=== PATIENT | male | born 1940 | race Two or more races ===

== ENCOUNTER 2019-02-27 12:56 | Inpatient (IN) | payer MEDICARE, OTHER ==
[~2019-02-27] VITALS: Ht 165.1 cm; Wt 72.6 kg
[2019-02-27] MEDS ORDERED: ACETAMINOPHEN 325 MG TABLET PO PRN (14:00)
[2019-02-27] MEDS ORDERED: clonazePAM 0.5 MG TABLET PO PRN (14:00)
[2019-02-27] MEDS ORDERED: MAG HYDROX/AL HYDROX/SIMETH 30 ML UDC PO PRN (14:00)
[2019-02-27] MEDS ORDERED: MAGNESIUM HYDROXIDE 30 ML UDC PO PRN (14:00)
[2019-02-27] MEDS ORDERED: TEMAZEPAM 7.5 MG CAPSULE PO PRN (14:00)
--- NOTE | 2019-02-27 15:14 | NUR ---
SECURITY SYSTEM INSTALLER NOTE :ADMITTED A 78 Y/O MALE ON 5150 HOLD FOR DTO ,PER 5150 HOLD PATIENT WENT TO AN APARTMENT WITH AN AXE LOOKING FOR A FAMILY MEMBER ,THE PERSON WHO CALLED A POLICE SAID PATIENT HELD THE AXE ABOVE HIS HEAD .ON 1:1 ASSESSMENT PATIENT ALERT ,VERBALLY RESPONSIVE ,PARANOID AND SUSPICIOUS ,PREOCCUPIED WITH HIS OWN THOUGHTS ,EASILY IRRITABLE AND ANXIOUS ,MOOD DEPRESSED ,PATIENT STATED "PEOPLE ARE DANGEROUS TO YOUR HEALTH ,I DON'T HAVE ANY MEDICAL PROBLEM AND DON'T TAKE ANY MEDICATIONS ".AMBULATORY AND SELF CARE .PATIENT'S RIGHT HAND BOOK GIVEN AND EXPLAINED TO PATIENT ABLE TO VERBALIZE UNDERSTANDING ,START PATIENT ON Q15 MINUTES SAFETY CHECK .
[2019-02-27 16:00] VITALS: BP 117/64
[2019-02-27] MEDS: QUETIAPINE FUMARATE 25 MG TABLET PO SCH (17:00)
[2019-02-27 20:14] VITALS: BP 100/57
[2019-02-27 22:14] VITALS: BP 105/62
[2019-02-28 07:29] LABS: ALANINE AMINOTRANSFERASE 18 U/L (12-78); ALKALINE PHOSPHATASE 71 U/L (46-116); ASPARTATE AMINOTRANSFERASE 14 U/L (15-37); BILIRUBIN,TOTAL 0.4 mg/dL (0.2-1.0); CALCIUM, SERUM 8.8 mg/dL (8.5-10.1); CARBON DIOXIDE 28 mmol/L (21-32); CHLORIDE 106 mmol/L (98-107); CREATININE 0.9 mg/dL (0.6-1.3); GLUCOSE 97 mg/dL (74-106); POTASSIUM 4.1 mmol/L (3.5-5.1); SODIUM SERUM 144 mmol/L (136-145); TOTAL PROTEIN, SERUM 7.2 g/dL (6.4-8.2); UREA NITROGEN, BLOOD 17 mg/dL (7-18)
[2019-02-28 07:53] LABS: CHOLESTEROL 164 mg/dL (<200); HDL CHOLESTEROL 25 mg/dL (40-60); LDL 134 mg/dL (0-99); TRIGLYCERIDES 88 mg/dL (30-150)
[2019-02-28 08:00] VITALS: BP 124/78
[2019-02-28] MEDS: QUETIAPINE FUMARATE 25 MG TABLET PO SCH ×2 (08:16→16:17)
--- NOTE | 2019-02-28 11:02 | NUR ---
Initial Discharge Plan: Pt currently resides at his home located at [address] [place] [address], [place] [address]; ([phone]). Per pt, he would like to return to his home. JANIE will work with the MD and the pt regarding appropriate discharge planning. SW will form a safe and proper discharge plan.
[2019-02-28 16:00] VITALS: BP 143/74
--- NOTE | 2019-02-28 16:12 | NUR ---
Pt refused to participate in supportive counseling with the SW today and stated that he just wanted to be discharged home.
[2019-02-28] MEDS: BLOOD SUGAR DIAGNOSTIC 1 EACH STRIP IN SCH (17:15)
[2019-02-28 19:59] VITALS: BP 103/66
[2019-02-28 20:12] LABS: APPEARANCE,URINE CLEAR (CLEAR); BILIRUBIN,URINE NEGATIVE (NEGATIVE); BLOOD, URINE NEGATIVE Ery/uL (NEGATIVE); COLOR,URINE YELLOW (YELLOW); KETONES,URINE NEGATIVE (NEGATIVE); LEUKOCYTE ESTERASE ,URINE NEGATIVE (NEGATIVE); NITRITE, URINE NEGATIVE (NEGATIVE); PROTEIN,URINE NEGATIVE (NEGATIVE); UGLUCOSE NEGATIVE (NEGATIVE); UROBILINOGEN,URINE 0.2 EU/dL (0.2)
[2019-03-01 07:21] LABS: BASOPHILS % (AUTO) 0.6 % (0.0-2.0); EOSINOPHILS % (AUTO) 2.8 % (0.0-6.0); HEMATOCRIT 37 % (39-51); LYMPHOCYTES # (AUTO) 2.2 /CMM (0.8-4.8); MEAN CORPUSCULAR HGB CONC 32 g/dl (31.0-36.0); MEAN CORPUSCULAR VOLUME 78 fL (80-96); MONOCYTES # (AUTO) 0.8 /CMM (0.1-1.30); MONOCYTES % (AUTO) 11.7 % (2.0-12.0); NEUTROPHILS # (AUTO) 3.6 /CMM (1.8-8.9); NEUTROPHILS % (AUTO) 52.9 % (43.0-81.0); PLATELET COUNT (AUTO) 187 /CMM (150-450); RED BLOOD CELL COUNT(AUTO) 4.79 MIL/uL (4.5-6.0); WHITE BLOOD COUNT (AUTO) 6.8 K/uL (4.3-11.0)
[2019-03-01 07:44] LABS: CALCIUM, SERUM 8.6 mg/dL (8.5-10.1); CARBON DIOXIDE 26 mmol/L (21-32); CHLORIDE 106 mmol/L (98-107); CREATININE 0.9 mg/dL (0.6-1.3); GLUCOSE 99 mg/dL (74-106); MAGNESIUM 2.2 mg/dL (1.8-2.4); PHOSPHORUS 3.1 mg/dL (2.5-4.9); POTASSIUM 4.1 mmol/L (3.5-5.1); SODIUM SERUM 143 mmol/L (136-145); UREA NITROGEN, BLOOD 17 mg/dL (7-18)
[2019-03-01 08:00] VITALS: BP 127/69
[2019-03-01] MEDS: QUETIAPINE FUMARATE 25 MG TABLET PO SCH ×2 (08:18→16:45)
[2019-03-01] MEDS: BLOOD SUGAR DIAGNOSTIC 1 EACH STRIP IN SCH (08:43)
[2019-03-01 16:00] VITALS: BP 129/77
--- NOTE | 2019-03-01 16:00 | NUR ---
Group Note: Pt refused to participate in group therapy and stated, "I do not need to be in therapy with these people."
[2019-03-01 20:00] VITALS: BP 100/60
[2019-03-02 08:00] VITALS: BP 117/63
[2019-03-02] MEDS ORDERED: QUETIAPINE FUMARATE 25 MG TABLET PO SCH ×2 (09:00→22:00)
--- NOTE | 2019-03-02 10:00 | NUR ---
RN-CO: Probable cause hearing was held and the collections officer decided, there is not probable cause to believe that the patient as a result of a mental disorder is a DTS/ DTO/ gd. Therefore she ordered to release and discontinue hold. Or ask to sign VOL. Patient however refused to sign voluntary admissions. Dr Kathleen made aware and ordered to discharge the patient.
--- NOTE | 2019-03-02 14:10 | NUR ---
GPS/RN-NOTES PATIENT DISCHARGE TO HOME TODAY. DR. LYLE COVERING FOR DR. KUHN AND ARIANE SHEPHERD MADE AWARE AND AGREES WITH ORDERS. PATIENT DID NOT VERBALIZE SI/HI,DENIES VISUAL/AUDITORY HALLUCINATIONS AT THE TIME OF DISCHARGE. ALL DISCHARGE MEDICATIONS WAS REVIEWED WITH THE PATIENT WITH UNDERSTANDING.PHARMACY ADDRESS WAS GIVEN TO THE PATIENT, ALSO PATIENT WAS ADVISED TO CALL 911 IN CASE OF EMERGENCY. PATIENT MEDICATIONS WAS FAXED TO [facility] AT [address] [place], [place] [address] TEL # [phone]. RECEIVED AND CONFIRM BY [facility] ( PHARMACY) . PATIENT LEFT THE UNIT ALERT ORIENTED X3 AMBULATORY WITH STEADY GAIT. PATIENT LEFT VIA TAXI, HE LEFT WITH ALL BELONGINGS INCLUDING X2 KEYS AND CA. ID, WAS ASSISTED BY ONE PRESSURE WELDER STAFF IN THE LOBBY FOR SAFETY. NO FAMILY TO BE NOTIFIED OF THE DISCHARGE.
--- NOTE | 2019-03-02 16:05 | NUR ---
Discharge Note: Pt was discharged home to [address] [facility], [address], [place] [address]; ([phone]). Pt was transported via taxi ($47) around 2pm. Pt did not have any family to notify. Upon discharge, the pt appeared to be alert and oriented x4. Pt appeared to be in a euthymic mood and presented with a calm affect. Pt denied both suicidal and homicidal ideation as well as auditory and visual hallucinations. Pt was referred to [facility] located [address] [place] [address]; and a referral was faxed to: [phone]. Pt will also be under the care of [facility] located at [address] [place] [address]; .
== END 2019-03-02 14:10 | disposition home or self-care (01) | DRG 885 ==
LOC: GPS 12:56
PROVIDERS: ADMIT Psychiatry & Neurology Psychiatry; ATTEND Nurse Practitioner Acute Care
DX: F29 Unspecified psychosis not due to a substance or known physiological condition (principal); F41.9 Anxiety disorder, unspecified; F03.90 Unspecified dementia, unspecified severity, without behavioral disturbance, psychotic disturbance, mood disturbance, and anxiety; F20.0 Paranoid schizophrenia; E78.5 Hyperlipidemia, unspecified; Z88.0 Allergy status to penicillin
CPT/HCPCS: 36415; 80048-TC; 80053-TC; 80061-TC; 81000-TC; 82962-TC; 83735-TC; 84100-TC; 84443-TC; 85025-TC; 87081-TC